=== PATIENT | female | born 1960 | race Caucasian/White ===

== ENCOUNTER 2016-08-09 21:35 | Inpatient (IN) | payer OTHER ==
[~2016-08-09] VITALS: Ht 177.8 cm; Wt 113.8 kg
[~2016-08-09 21:35] MED LIST: Z.0.NO CURRENT MEDS
[2016-08-09 21:42] VITALS: BP 129/65; PULSE 85; RESP 20; TEMP 97.6; O2SAT 96
[2016-08-09] MEDS ORDERED: TETANUS/DIPHTHERIA TOXOID ADULT 0.5 ML VIAL IM ONE (22:30)
[2016-08-09] MEDS ORDERED: SODIUM CHLORIDE 0.9% FLUSH 5 ML FLUSH IVF PRN (22:30)
[2016-08-09] MEDS ORDERED: ceFAZolin 2 GM PREMIX 50 ML IV ONE (22:30)
[2016-08-09] MEDS ORDERED: MORPHINE SULFATE 8 MG/ML INJ IV PUSH ONE (22:30)
--- NOTE | 2016-08-09 22:36 | PD ---
HPI Chief Complaint: Wrist pain, finger pain. Time Seen by Provider: 22:14 Travel History International Travel<30 days: No Contact w/Intl Traveler<30days: No Traveled to known affect area: No History of Present Illness HPI Patient's 56-year-old female who was walking down the stairs to go 10 to her cats when she tripped and fell landing on outstretched hands. Patient is complaining of left finger pain as well as right wrist pain. Patient states that she went to the [facility] the wait was too long and so she went to [facility] the wait was too long and she went to an urgent care facility and she was referred back to the emergency department. She said the injury happened approximately 2 hours prior to her arrival in the emergency department. Patient denies any injury to her head neck back chest abdomen or pelvis. Denies loss of consciousness and describes a purely mechanical fall. PFSH Past Surgical History Hysterectomy: Yes Social History Alcohol Use: No Tobacco Use: Yes Allergies-Medications (Allergen,Severity, Reaction): Coded Allergies: No Known Allergies (Verified , 08/10/16) Reported Meds & Prescriptions Reported Meds & Active Scripts Active Review of Systems Except as stated in HPI: all other systems reviewed are Neg Physical Exam Narrative GENERAL: Well-developed well-nourished appears in quite significant pain. SKIN: Warm and dry. HEAD: Atraumatic. Normocephalic. EYES: Pupils equal and round. No scleral icterus. No injection or drainage. ENT: No nasal bleeding or discharge. Mucous membranes pink and moist. NECK: Trachea midline. No JVD. CARDIOVASCULAR: Regular rate and rhythm. No murmur appreciated. RESPIRATORY: No accessory muscle use. Clear to auscultation. Breath sounds equal bilaterally. GASTROINTESTINAL: Abdomen soft, non-tender, nondistended. Hepatic and splenic margins not palpable. MUSCULOSKELETAL: There is an obvious deformity of the right wrist with volar displacement of distal components compared to proximal components. Patient's pulse motor and sensory are intact distally. She also has an overlying laceration primarily on the ulnar aspect of her volar surface. There is some tendon exposed. The right elbow is within normal limits right shoulder within normal limits. The left index and long fingers have swelling and bruising. There is also a very small laceration in the webspace between the thumb and index finger on the left side. The wrist elbow and shoulder on this extremity are normal. CTL and S spine showed no step-off and no tenderness. Head is atraumatic. No visible signs of trauma to her chest abdomen or pelvis. Lower extremities are atraumatic. NEUROLOGICAL: Awake and alert. No obvious cranial nerve deficits. Motor grossly within normal limits. Normal speech. PSYCHIATRIC: Appropriate mood and affect; insight and judgment normal. Data Data Last Documented VS Vital Signs Date Time Temp Pulse Resp B/P Pulse Ox O2 Delivery O2 Flow Rate FiO2 08/10/16 01:33 83 20 118/60 95 Room Air 08/10/16 01:33 5.00 08/09/16 21:42 97.6 Orders Wrist, Complete (Lat1umk) (08/09/16 ) Hand, Complete ([id number]) (08/09/16 22:21) Basic Metabolic Panel (Bmp) (08/09/16 22:29) Complete Blood Count With Diff (08/09/16 22:29) Iv Access Insert/Monitor (08/09/16 22:29) Ecg Monitoring (08/09/16 22:29) Oximetry (08/09/16 22:29) Sodium Chloride 0.9% Flush (Ns Flush) (08/09/16 22:30) Tetanus/Diphtheria Tox Adult (Tetanus/Di (08/09/16 22:30) Cefazolin 2 Gm Premix (Ancef 2 Gm Premix (08/09/16 22:30) Morphine Inj (Morphine Inj) (08/09/16 22:30) Propofol 200 Mg/20 Ml Inj (Diprivan 200 (08/10/16 00:15) Lidocaine 1% Inj (50 Ml) (Xylocaine 1% I (08/10/16 01:00) Wrist, Limited (Ap&Lat) (08/10/16 ) Hand, Limited (2vws) (08/10/16 ) Admit Order (Ed Use Only) (08/10/16 ) Chest, Single Ap (08/10/16 ) Electrocardiogram (08/10/16 ) Consult Orthopedic (08/10/16 ) Labs Laboratory Tests Test 08/09/16 23:25 White Blood Count 13.9 TH/MM3 Red Blood Count 4.50 MIL/MM3 Hemoglobin 14.0 GM/DL Hematocrit 40.1 % Mean Corpuscular Volume 89.2 FL Mean Corpuscular Hemoglobin 31.1 PG Mean Corpuscular Hemoglobin 34.9 % Concent Red Cell Distribution Width 13.4 % Platelet Count 330 TH/MM3 Mean Platelet Volume 8.3 FL Neutrophils (%) (Auto) 84.8 % Lymphocytes (%) (Auto) 10.1 % Monocytes (%) (Auto) 3.9 % Eosinophils (%) (Auto) 0.8 % Basophils (%) (Auto) 0.4 % Neutrophils # (Auto) 11.8 TH/MM3 Lymphocytes # (Auto) 1.4 TH/MM3 Monocytes # (Auto) 0.5 TH/MM3 Eosinophils # (Auto) 0.1 TH/MM3 Basophils # (Auto) 0.1 TH/MM3 CBC Comment DIFF FINAL Differential Comment Sodium Level 138 MEQ/L Potassium Level 3.5 MEQ/L Chloride Level 101 MEQ/L Carbon Dioxide Level 27.0 MEQ/L Anion Gap 10 MEQ/L Blood Urea Nitrogen 9 MG/DL Creatinine 0.67 MG/DL Estimat Glomerular Filtration 92 ML/MIN Rate Random Glucose 104 MG/DL Calcium Level 8.6 MG/DL MDM Medical Decision Making Medical Screen Exam Complete: Yes Emergency Medical Condition: Yes Differential Diagnosis Open fracture of the right distal radius, finger dislocation, finger fracture, tendon involvement unlikely, vascular involvement unlikely. Narrative Course Patient is a 56-year-old female presents today with fracture of her right distal radius. Thomas be open as there is a laceration of the flexor surface of the radius. She has been ordered pain medicine as well as Ancef. At 2236 a screening medical exam was performed and she will be bed as soon as a bed becomes available. Last 24 hours Impressions Hand X-Ray 08/09/16 2221 Signed Impressions: Service Date/Time: Tuesday, August 09, 2016 22:11 - CONCLUSION: 1. Dislocation at the proximal interphalangeal joint of the second and third fingers. Caleb Hernandez MD Wrist X-Ray 08/09/16 0000 Signed Impressions: Service Date/Time: Tuesday, August 09, 2016 22:06 - CONCLUSION: 1. Posteriorly displaced distal radius fracture with slight comminution. Caleb Hernandez MD Patient was sedated by Dr. Garcia for reduction of her right wrist after discussing with Dr. Mckinley who is on-call for orthopedics. Patient will be placed on the OR schedule for tomorrow morning. Request transfer up to the main hospital for surgery. Patient is being in Ancef as well as tetanus shot in the emergency department. Post reduction films of fingers showed adequate reduction without fracture. Post reduction of wrist shows minimally improved angulation. Discussed with Dr. Siddiqi for admission. Procedures Procedure Narrative Finger reduction: During induction of procedural sedation but Dr. Garcia, patients left index and long fingers were anesthetized with digital blocks with 1% lidocation prior to reduction and with gentle traction and countertraction were reduced easily. Motor and cap refill intact after reduction. Patient after sedation was complaining of finger numbness. WIll continue to monitor but this is from ring block currently. Wrist reduction: Under procedural sedation patient has quite a lax fracture site which slipped in and out of alignment multiple times during sedation. Hematoma block was performed with 1% lidocaine prior to reduction. She was splinted with sugar tong splint. Pulses motor and sensory were intact after splinting. She suffered no untoward events complication of either splinting reduction or sedation. Feeling much better. Diagnosis Primary Impression: Open fracture of distal end of radius Qualified Code: S52.531B - Type I or II open Colles' fracture of right radius , initial encounter Additional Impression: Finger dislocation Qualified Code: S63.259A - Finger dislocation, initial encounter Admitting Information Admitting Physician Requests: Admit Condition: Stable Romulo Quiroga MD Aug 09, 2016 22:36
--- NOTE | 2016-08-09 22:43 | RADHPO ---
EXAM DATE/TIME: 08/09/2016 22:06 [facility] COMPARISON: No previous studies available for comparison. INDICATIONS : Right wrist pain after fall. MEDICAL HISTORY : None. SURGICAL HISTORY : None. ENCOUNTER: Initial ACUITY: 1 day PAIN SCORE: 10/10 LOCATION: Right upper extremity FINDINGS: Three view examination of the right wrist demonstrates fracture distal radius with posterior displace ment. No dislocation. Ulna appears intact. CONCLUSION: 1. Posteriorly displaced distal radius fracture with slight comminution. Caleb Hernandez MD on August 09, 2016 at 22:40 Board Certified Radiologist. This report was verified electronically.
--- NOTE | 2016-08-09 22:44 | RADHPO ---
EXAM DATE/TIME: 08/09/2016 22:11 [facility] COMPARISON: No previous studies available for comparison. INDICATIONS : Multiple left hand lacerations and pain from cat scratch. MEDICAL HISTORY : None. SURGICAL HISTORY : None. ENCOUNTER: Initial ACUITY: 1 day PAIN SCORE: 5/10 LOCATION: Left upper extremity FINDINGS: There is posterior dislocation at the second and third proximal interphalangeal joints. No fracture o r radiopaque foreign body. CONCLUSION: 1. Dislocation at the proximal interphalangeal joint of the second and third fingers. Caleb Hernandez MD on August 09, 2016 at 22:41 Board Certified Radiologist. This report was verified electronically.
[2016-08-09 23:28] VITALS: RESP 18; O2SAT 97
[2016-08-09 23:35] VITALS: BP 130/68; PULSE 85; RESP 18; O2SAT 97
[2016-08-09 23:44] LABS: AUTOMATED NEUTROPHIL # 11.8 TH/MM3 (1.8-7.7); BASOPHIL # 0.1 TH/MM3 (0-0.2); BASOPHIL % 0.4 % (0.0-2.0); EOSINOPHIL # 0.1 TH/MM3 (0-0.4); EOSINOPHIL % 0.8 % (0.0-4.0); HEMATOCRIT 40.1 % (35.0-46.0); HEMO FLAGS DIFF FINAL; LYMPH % 10.1 % (9.0-44.0); LYMPHOCYTE # 1.4 TH/MM3 (1.0-4.8); MEAN CELL VOLUME 89.2 FL (80.0-100.0); MEAN CORPUSCULAR HEMOGLOBIN 31.1 PG (27.0-34.0); MEAN CORPUSCULAR HGB CONC 34.9 % (32.0-36.0); MONO % 3.9 % (0.0-8.0); NEUT % 84.8 % (16.0-70.0); PLATELET COUNT 330 TH/MM3 (150-450); RED CELL DISTRIBUTION WIDTH 13.4 % (11.6-17.2); WHITE BLOOD COUNT 13.9 TH/MM3 (4.0-11.0)
[2016-08-09 23:51] LABS: POTASSIUM 3.5 MEQ/L (3.5-5.1)
[2016-08-10] VITALS (14 sets, daily range): BP systolic 108–159; BP diastolic 58–77; PULSE 74–88; RESP 16–20; TEMP 96.7–98.5; O2SAT 93–97
[2016-08-10] MEDS ORDERED: PROPOFOL 200 MG/20 ML AMP IV ONE ×2 (00:15→11:06)
[2016-08-10] MEDS ORDERED: LIDOCAINE HCL 1% 50 ML VIAL INFIL ONE (01:00)
--- NOTE | 2016-08-10 02:05 | RADHPO ---
EXAM DATE/TIME: 08/10/2016 01:50 [facility] COMPARISON: WRIST RIGHT COMPLETE ([id number]), August 09, 2016, 22:06. INDICATIONS : Post reduction right wrist. MEDICAL HISTORY : None. SURGICAL HISTORY : None. ENCOUNTER: Subsequent ACUITY: 1 day PAIN SCORE: 8/10 LOCATION: Right upper extremity FINDINGS: 2 view examination performed in fiberglass splint status post reduction of distal radial fracture. A lateral projection, there is partial reduction with only mild posterior angulation of the comminuted distal radial fracture. The carpus is in normal alignment. The distal ulna is intact. Degenerativ e changes in the 1st MCP articulation. CONCLUSION: Partial reduction of the angulated comminuted distal radial fracture in splint. Leighton Carlton MD on August 10, 2016 at 2:01 Board Certified Radiologist. This report was verified electronically.
--- NOTE | 2016-08-10 02:07 | RADHPO ---
EXAM DATE/TIME: 08/10/2016 01:49 [facility] COMPARISON: HAND LEFT COMPLETE ([id number]), August 09, 2016, 22:11. INDICATIONS : Post reduction left hand. MEDICAL HISTORY : None. SURGICAL HISTORY : None. ENCOUNTER: Subsequent ACUITY: 1 day PAIN SCORE: 4/10 LOCATION: Left upper extremity FINDINGS: Two-view examination status post reduction of PIP joint dislocations of the 2nd and 3rd digits. Alig nment is now anatomic. Aluminum splint is present on the palmar 3rd digit. Osseous structures are i n anatomic alignment. No fracture seen. CONCLUSION: Interval reduction of 2nd and 3rd digit PIP dislocations. Leighton Carlton MD on August 10, 2016 at 2:03 Board Certified Radiologist. This report was verified electronically.
[2016-08-10] MEDS ORDERED: SODIUM CHLOR 0.9% 1000 ML INJ 1,000 ML IV SCH (02:23)
--- NOTE | 2016-08-10 02:27 | PD ---
Physical Exam Date Seen by Provider: Aug 10, 2016 Time Seen by Provider: 01:30 Narrative GENERAL: Well-developed well-nourished female in no acute distress no respiratory distress SKIN: Warm and dry. HEAD: Normocephalic. EYES: No scleral icterus. Pupils equal round reactive to light. No injection or drainage. ENT airway is patent mucous membranes moist. NECK: Supple, trachea midline. No JVD or lymphadenopathy. Normal flexion extension without limitation. CARDIOVASCULAR: Regular rate and rhythm without murmurs, gallops, or rubs. RESPIRATORY: Breath sounds equal bilaterally. No accessory muscle use. GASTROINTESTINAL: Abdomen soft, non-tender, nondistended. MUSCULOSKELETAL: No cyanosis, or edema. Patient with obvious deformity of the right wrist and left index and middle fingers please refer to Dr. Quiroga's dictation Data Data Last Documented VS Vital Signs Date Time Temp Pulse Resp B/P Pulse Ox O2 Delivery O2 Flow Rate FiO2 08/10/16 01:33 83 20 118/60 95 Room Air 08/10/16 01:33 5.00 08/09/16 21:42 97.6 Orders Wrist, Complete ([id number]) (08/09/16 ) Hand, Complete ([id number]) (08/09/16 22:21) Basic Metabolic Panel (Bmp) (08/09/16 22:29) Complete Blood Count With Diff (08/09/16 22:29) Iv Access Insert/Monitor (08/09/16 22:29) Ecg Monitoring (08/09/16 22:29) Oximetry (08/09/16 22:29) Sodium Chloride 0.9% Flush (Ns Flush) (08/09/16 22:30) Tetanus/Diphtheria Tox Adult (Tetanus/Di (08/09/16 22:30) Cefazolin 2 Gm Premix (Ancef 2 Gm Premix (08/09/16 22:30) Morphine Inj (Morphine Inj) (08/09/16 22:30) Propofol 200 Mg/20 Ml Inj (Diprivan 200 (08/10/16 00:15) Lidocaine 1% Inj (50 Ml) (Xylocaine 1% I (08/10/16 01:00) Wrist, Limited (Ap&Lat) (08/10/16 ) Hand, Limited (2vws) (08/10/16 ) Admit Order (Ed Use Only) (08/10/16 ) Chest, Single Ap (08/10/16 ) Electrocardiogram (08/10/16 ) Consult Orthopedic (08/10/16 ) Labs Laboratory Tests Test 08/09/16 23:25 White Blood Count 13.9 TH/MM3 Red Blood Count 4.50 MIL/MM3 Hemoglobin 14.0 GM/DL Hematocrit 40.1 % Mean Corpuscular Volume 89.2 FL Mean Corpuscular Hemoglobin 31.1 PG Mean Corpuscular Hemoglobin 34.9 % Concent Red Cell Distribution Width 13.4 % Platelet Count 330 TH/MM3 Mean Platelet Volume 8.3 FL Neutrophils (%) (Auto) 84.8 % Lymphocytes (%) (Auto) 10.1 % Monocytes (%) (Auto) 3.9 % Eosinophils (%) (Auto) 0.8 % Basophils (%) (Auto) 0.4 % Neutrophils # (Auto) 11.8 TH/MM3 Lymphocytes # (Auto) 1.4 TH/MM3 Monocytes # (Auto) 0.5 TH/MM3 Eosinophils # (Auto) 0.1 TH/MM3 Basophils # (Auto) 0.1 TH/MM3 CBC Comment DIFF FINAL Differential Comment Sodium Level 138 MEQ/L Potassium Level 3.5 MEQ/L Chloride Level 101 MEQ/L Carbon Dioxide Level 27.0 MEQ/L Anion Gap 10 MEQ/L Blood Urea Nitrogen 9 MG/DL Creatinine 0.67 MG/DL Estimat Glomerular Filtration 92 ML/MIN Rate Random Glucose 104 MG/DL Calcium Level 8.6 MG/DL [facility] Medical Record Reviewed: Yes Supervised Visit with JM: No Differential Diagnosis please refer to Dr Quiroga's dictation Narrative Course Patient identified to have dislocation of left index and middle fingers as well as fracture dislocation of the right wrist; asked to participate in procedural sedation for Dr. Quiroga's planned reduction of the right wrist and left digits. Procedures Procedure Narrative After the risks and benefits were discussed the following procedure was performed: MODERATE SEDATION: The patient was placed on a youth nutritional monitor and pulse oximetry. An ambu bag and suction was immediately available at bedside. The patient was monitored by the nurse. Oxygen saturation, heart rate and blood pressure were monitored. Procedural sedation was achieved using propofol 200 mg. The patient was observed until awake and alert. Procedural Sedation time in attendance was 25 minutes. Diagnosis Primary Impression: Open fracture of distal end of radius Qualified Code: S52.531B - Type I or II open Colles' fracture of right radius , initial encounter Condition: Stable Isabel Garcia MD Aug 10, 2016 02:27
[2016-08-10] MEDS ORDERED: NALOXONE HCL 0.4 MG/ML AMP IV PRN ×2 (02:30→12:45)
[2016-08-10] MEDS ORDERED: ONDANSETRON HCL 4 MG/2 ML VIAL IVP PRN ×2 (02:30→12:45)
[2016-08-10] MEDS ORDERED: ACETAMINOPHEN 325 MG TAB PO PRN (02:30)
[2016-08-10] MEDS ORDERED: SODIUM CHLORIDE 0.9% FLUSH 5 ML FLUSH FLUSH PRN (02:30)
--- NOTE | 2016-08-10 03:25 | RADHPO ---
EXAM DATE/TIME: 08/10/2016 02:40 [facility] COMPARISON: No previous studies available for comparison. INDICATIONS : Evaluate for pneumonia, pneumothorax, or communicable disease. Pre op right wrist. MEDICAL HISTORY : None. SURGICAL HISTORY : None. ENCOUNTER: Initial ACUITY: 1 day PAIN SCORE: 0/10 LOCATION: Bilateral chest FINDINGS: A single view of the chest demonstrates the lungs to be symmetrically aerated without evidence of mas s, infiltrate or effusion. The cardiomediastinal contours are unremarkable. Osseous structures are intact. CONCLUSION: The lungs are clear. Leighton Carlton MD on August 10, 2016 at 3:23 Board Certified Radiologist. This report was verified electronically.
[2016-08-10] MEDS: MORPHINE SULFATE 4 MG/ML INJ IV PUSH PRN ×2 (03:58→09:50)
[2016-08-10] MEDS ORDERED: SODIUM CHLORID 0.9% 500 ML IV SCH (04:45)
[2016-08-10] MEDS ORDERED: LACTATED RINGER'S 1000 ML IV SCH (04:45)
[2016-08-10] MEDS ORDERED: INSULIN HUMAN REGULAR 1,000 UNITS/10 ML VIAL SQ PRN (04:45)
[2016-08-10] MEDS ORDERED: METOPROLOL TARTRATE 25 MG TAB PO PRN (04:45)
[2016-08-10] MEDS ORDERED: SODIUM CHLORIDE 0.9% FLUSH 5 ML FLUSH FLUSH SCH (09:00)
[2016-08-10] MEDS ORDERED: ACETAMINOPHEN 1000 MG/100 ML VIAL IV ONE (11:00)
[2016-08-10] MEDS ORDERED: BUPIVACAINE HCL PF 0.25% 30 ML VIAL ONE (11:04)
[2016-08-10] MEDS ORDERED: GENTAMICIN SULFATE 80 MG/2 ML VIAL ONE (11:04)
[2016-08-10] MEDS ORDERED: LIDOCAINE HCL 1% 50 ML VIAL ONE (11:04)
[2016-08-10] MEDS ORDERED: ONDANSETRON HCL 4 MG/2 ML VIAL IV PUSH ONE (11:06)
[2016-08-10] MEDS ORDERED: VANCOMYCIN HCL 1000 MG VIAL ONE (11:31)
[2016-08-10] MEDS: DEXT 5%-NACL 0.45% 1000 ML INJ 1,000 ML IV SCH ×2 (12:42→20:51)
[2016-08-10] MEDS ORDERED: HYDR-3288 PO (12:44)
[2016-08-10] MEDS ORDERED: CEPH-460 PO (12:44)
[2016-08-10] MEDS ORDERED: MORPHINE SULFATE 4 MG/ML INJ IV PUSH PRN (12:45)
[2016-08-10] MEDS ORDERED: MAGNESIUM HYDROXIDE SUSP 30 ML CUP PO PRN (12:45)
[2016-08-10] MEDS ORDERED: diphenhydrAMINE HCL 25 MG CAP PO PRN (12:45)
[2016-08-10] MEDS ORDERED: ACETAMINOPHEN/HYDROcodone 325 MG/7.5 MG TAB PO PRN (12:45)
[2016-08-10] MEDS ORDERED: Post-op Orders (for Pharmacy) MISC XX ONE (12:45)
[2016-08-10] MEDS ORDERED: MISCELLANEOUS PHARMACY INFORMATION XX ONE (12:45)
[2016-08-10] MEDS ORDERED: MISCELLANEOUS NURSING INFORMATION XX PRN (12:45)
[2016-08-10] MEDS ORDERED: SODIUM CHLORIDE 0.9% FLUSH 5 ML FLUSH IVF PRN (12:45)
[2016-08-10] MEDS ORDERED: MIDAZOLAM HCL 2 MG/2 ML VIAL ONE (12:54)
[2016-08-10] MEDS ORDERED: KETAMINE HCL 500 MG/5 ML VIAL ONE (12:54)
[2016-08-10] MEDS ORDERED: fentaNYL CITRATE 250 MCG/5 ML AMP ONE (12:55)
[2016-08-10] MEDS ORDERED: *RESP: ALBUTEROL 2.5 MG/3 ML NEB (PRN) PERIprocedural Use ONLY NEB ONE (12:56)
[2016-08-10] MEDS ORDERED: DO NOT ADM ANY ANTICOAGULANT DRUGS XX PRN (13:15)
[2016-08-10] MEDS: MORPHINE SULFATE 30 MG/30 ML PCA IV SCH (13:21)
[2016-08-10] MEDS: PCA - TOTAL MG MORPHINE DELIVERED PER SHIFT SCH ×2 (14:00→20:50)
--- NOTE | 2016-08-10 14:32 | EKG ---
Date Performed: 08/10/2016 Time Performed: 02:13:14 PTAGE: 56 years EKG: Sinus rhythm . Nonspecific ST and T wave abnormalities Borderline ECG NO PREVIOUS TRACING DOCTOR: Serafin Bojorquez Interpretating Date/Time 08/10/2016 14:31:50
--- NOTE | 2016-08-10 15:43 | MH ---
cc: EVA SIDDIQI DATE OF ADMISSION: 08/10/2016 ADMITTING DOCTOR: Dr. Eva Siddiqi. PRIMARY CARE DOCTOR: Dr. Smith. REASON FOR ADMISSION: Pain in the finger left hand and wrist and arm right hand after a fall. HISTORY OF PRESENT ILLNESS: The patient is a very pleasant 66-year-old female without any significant past medical history who is taking no medications at home. As per the patient, she was trying to feed her cats and while she was trying to go downstairs, she tripped and she fell on the stairs. She fell with outstretched arms. After that, she had pain and she was brought to the emergency room. In the emergency room, she was evaluated by the emergency room physician and it was found the patient has a radius fracture and dislocation of the fingers for which the patient was admitted. At present, the patient is seen after surgery in her room. This morning she was not in her room and she went to the operating room. At present, the patient has some ache in her surgical area. There are no other associated symptoms. PAST MEDICAL HISTORY: Hysterectomy. MEDICATIONS: None. ALLERGIES: NO KNOWN DRUG ALLERGIES. REVIEW OF SYSTEMS: The review of systems is as described above in the history of present illness and is negative for ten systems. SOCIAL HISTORY: The patient does not smoke. She drinks a total of five wine glasses or beer per week. She does not do any drugs. She has lived with her significant other for 22 years. FAMILY HISTORY: Noncontributory. PHYSICAL EXAMINATION: GENERAL: The patient is alert and oriented, obese, lying on the bed without any apparent distress. VITAL SIGNS: The vitals show the patient is afebrile, pulse is 81, respiratory rate is 12, blood pressure 152/83, pulse oximetry 95% on four liters. HEAD, EYES, EARS, NOSE, THROAT: Head is normocephalic and atraumatic. Eyes - negative conjunctival icterus. Mouth unremarkable. NECK: The neck is supple. No increased jugular venous distention. Negative thyromegaly. Central trachea. RESPIRATORY SYSTEM: Chest clear to auscultation. CARDIOVASCULAR: S1 and S2 audible. I do not hear any S3 gallop. GASTROINTESTINAL: Abdomen soft. No organomegaly. Positive bowel sounds. MUSCULOSKELETAL: Positive for sling on the right upper extremity with dressing on part of the hand as well as arm and elbow area. Left hand with two fingers in splint. The patient has good sensation in both hands. She can move her fingers. CENTRAL NERVOUS SYSTEM: Alert, oriented, normal facial features moving extremities. PSYCHIATRIC: Appropriate mood, affect. SKIN: Warm and dry. INVESTIGATIONS: Basic metabolic profile within normal limits. CBC shows WBC count 13; otherwise, within normal limits. IMAGING STUDIES: Chest x-ray was done which shows lungs are clear. Wrist x-rays were done yesterday showing a posterior displaced distal radius fracture with slight comminution. Hand x-rays show dislocation at the proximal interphalangeal joint of the second and third fingers. Wrist x-rays show partial reduction of the angulated comminuted distal radius fracture in a splint. Hand x-rays were done which show interval reduction of the second and third digits, proximal interphalangea dislocations. ASSESSMENT: 1. Open fracture of the distal end of the radius. 2. Finger dislocation. 3. Obesity. PLAN: 1. The patient has been admitted to the floor. 2. Appreciate orthopedic help status post surgery. 3. IV hydration. 4. IV analgesics on a PRN basis. 5. Antiemetics on a PRN basis. 6. Labs in the morning. Discussed with the patient and her at bedside. See orders. Further recommendations will follow as the patient progresses. Eva Siddiqi MD JP/JONO /2:27 PM /3:25 PM
--- NOTE | 2016-08-10 15:52 | RADRPT ---
EXAM DATE/TIME: 08/10/2016 12:19 [facility] COMPARISON: WRIST RIGHT LIMITED(AP & LAT), August 10, 2016, 1:50. INDICATIONS : Open reduction internal fixation of right radius fracture MEDICAL HISTORY : None. SURGICAL HISTORY : None. ENCOUNTER: Initial ACUITY: 1 day PAIN SCORE: Non-responsive. LOCATION: Right wrist FINDINGS: Matrix views in the OR reveal placement of a ventral plate across the distal radius with multiple scr ews transfixing the distal radial fracture fragments at the X. alignment and approximation of fragmen ts. CONCLUSION: Postsurgical plating distal radial fracture Freddie John MD on August 10, 2016 at 15:50 Board Certified Radiologist. This report was verified electronically.
--- NOTE | 2016-08-10 16:42 | MB ---
cc: TASHIA STEINER M.D. DATE OF CONSULTATION: 08/10/2016. REASON FOR CONSULTATION: Left open distal radius fracture. HISTORY OF PRESENT ILLNESS: This a 56-year-old female who was going down the stairs and tripped and fell landing on her outstretched hand. She developed the acute onset of a left distal radius fracture. This is an open fracture. She has significant pain, swelling and deformity of the wrist and also injured her fingers. She was initially evaluated by the emergency room physician at [facility] and she underwent irrigation in the emergency room and was given antibiotics and transferred to [facility]. She denies numbness or tingling. She denies loss of consciousness. She did not hit her head. The pain is constant and throbbing, slight relief with pain medication. PAST SURGICAL HISTORY: Hysterectomy. SOCIAL HISTORY: She denies alcohol, but she does smoke approximately one pack a day. ALLERGIES: SHE DENIES ANY DRUG ALLERGIES. MEDICATIONS: She does not take any medications. REVIEW OF SYSTEMS: Negative for ten systems other than the history of present illness. PHYSICAL EXAMINATION: VITAL SIGNS: Temperature 97.6, pulse is 83, respirations 20, blood pressure 118/60. GENERAL: The patient is overweight, awake, alert and lying in bed in no acute distress. HEAD, EYES, EARS, NOSE, THROAT: Normocephalic and atraumatic. Pupils round and reactive to light. Extraocular muscles intact. No scleral icterus. NECK: The neck is supple. LUNGS: Clear. HEART: Regular rate and rhythm. ABDOMEN: Abdomen soft and nontender. EXTREMITIES: The left upper extremity has swelling, ecchymosis and deformity of the left wrist. She has a traumatic laceration approximately 2 cm over the volar ulnar portion. No obvious bleeding. She can flex and extend her digits with limitation. Brisk capillary refill. Sensation is intact distally. 2+ radial pulse. PSYCHIATRIC: She has an appropriate mood and affect. LABORATORY DATA: White blood cell count is 13.9, hemoglobin 14, hematocrit is 40. Calcium is 8.6. IMAGING STUDIES: X-rays of the left wrist reveal a comminuted displaced interarticular distal radius fracture. IMPRESSION: A 56-year-old female who is status post fall with left comminuted displaced interarticular grade 2 open distal radius fracture. She also has injuries to her fingers including dislocations that apparently have been reduced by the emergency room physician. PLAN: I discussed the diagnosis with the patient. She had the treatment option of both operative versus nonoperative. The risks, benefits, and indications were discussed. She did wish to proceed with surgery. We will schedule her for irrigation and debridement and open reduction internal fixation of the fracture. The risks of surgery were discussed which include but are not limited to anesthesia, bleeding, infection, damage to nerve or blood vessels, pain, stiffness, failure of hardware, nonunion, blood clots. The patient understands. She does wish to proceed with surgery as outlined above. Written consent has been obtained. The surgical site has been marked. MD JENNIFER Pena/JONO /12:38 PM /4:31 PM
[2016-08-10] MEDS: SODIUM CHLORIDE 0.9% FLUSH 5 ML FLUSH IVF SCH (20:50)
[2016-08-10] MEDS: DOCUSATE SODIUM 50 MG/SENNA 8.6 MG TAB PO SCH (20:50)
--- NOTE | 2016-08-10 22:11 | MP ---
cc: TASHIA STEINER M.D. DATE OF SURGERY 08/10/16 PREOPERATIVE DIAGNOSIS Right grade 2 open distal radius fracture. POSTOPERATIVE DIAGNOSES Right grade 2 open distal radius fracture. PROCEDURE Open reduction, internal fixation right grade 2 open distal radius fracture greater than 3 intra-articular fragments, irrigation debridement of right grade 2 open distal radius fracture. SURGEON Dr. Tashai Steiner PHYSICAL SCIENCES PROFESSOR PEREZ Lynch ANESTHESIA General. ESTIMATED BLOOD LOSS Less than 50 cc. TOURNIQUET TIME Zero minutes. COMPLICATIONS None. IMPLANTS USED Synthes. JUSTIFICATION This patient is a 56-year-old female who fell down the stairs sustaining a right distal radius fracture with displacement. She also had a traumatic laceration of the ulnar volar aspect. She is admitted to the medical service, orthopedic surgery consulted. The patient was counseled as to the risks, benefits and alternatives to the above-named surgical procedure. She did wish to proceed with surgery. PROCEDURE IN DETAIL A written consent was obtained. The patient was identified by name, taken to OR, placed supine, ___, general anesthesia was administered as well as 2 grams of IV Ancef and 1 gram of IV vancomycin. The right upper extremity was then prepped and draped using as isopropyl alcohol, Hibiclens solution and Chloraprep solution. After appropriate time-out was performed a longitudinal incision was made over the volar aspect of the right wrist. The flexor carpi radialis tendon sheath was incised and the pronator musculature elevated off the radial aspect of the distal radius, multiple K-wires were used for preliminary fixation, reconstruction of the joint surface. Subsequently, Synthes volar ____ was applied to the volar aspect of the distal radius. A combination of both locking and nonlocking screws were used for fixation. Fluoroscopic imaging confirmed hardware placement and fracture reduction. The K-wires were removed. A debridement of the open traumatic wound was performed with a 15 blade scalpel to include skin and subcutaneous tissue with irrigation and debridement down to the level of the ulna. The subcutaneous incision along the radial aspect was closed with 3-0 Vicryl suture. Skin incisions were closed with 4-0 nylon. Sterile dressing applied. The patient placed in well-padded splint. She tolerated the procedure well with no intraoperative complications noted. Marco Payne, physician recreational assistant certified, was present during the entire procedure to include patient positioning, the procedure itself. The medical necessity of physician recreational assistant was indicated in this case due to the complexity of the procedure to assist with appropriate manipulation of the wrist. He also assisted with retraction of muscle, tendon, bone, neurovascular structures. He assisted with both maintaining and achieving fracture reduction as well as implantation of the internal fixation device. MD JENNIFER Pena/GAURI /12:41 PM /9:41 PM
[2016-08-11] VITALS (8 sets, daily range): BP systolic 95–117; BP diastolic 50–73; PULSE 71–80; RESP 16–17; TEMP 96–97.9; O2SAT 94–97
[2016-08-11] MEDS: MORPHINE SULFATE 30 MG/30 ML PCA IV SCH (03:35)
[2016-08-11] MEDS: PCA - TOTAL MG MORPHINE DELIVERED PER SHIFT SCH ×2 (05:29→13:02)
[2016-08-11 05:57] LABS: AUTOMATED NEUTROPHIL # 6.3 TH/MM3 (1.8-7.7); BASOPHIL % 0.5 % (0.0-2.0); EOSINOPHIL # 0.1 TH/MM3 (0-0.4); EOSINOPHIL % 0.9 % (0.0-4.0); HEMATOCRIT 33.4 % (35.0-46.0); HEMO FLAGS DIFF FINAL; LYMPH % 13.8 % (9.0-44.0); LYMPHOCYTE # 1.1 TH/MM3 (1.0-4.8); MEAN CELL VOLUME 90.4 FL (80.0-100.0); MEAN CORPUSCULAR HEMOGLOBIN 31.4 PG (27.0-34.0); MEAN CORPUSCULAR HGB CONC 34.7 % (32.0-36.0); MONO % 8.8 % (0.0-8.0); PLATELET COUNT 245 TH/MM3 (150-450); RED CELL DISTRIBUTION WIDTH 14.4 % (11.6-17.2); WHITE BLOOD COUNT 8.2 TH/MM3 (4.0-11.0)
[2016-08-11 06:09] LABS: BICARBONATE 28.7 MEQ/L (21.0-32.0); POTASSIUM 3.8 MEQ/L (3.5-5.1)
[2016-08-11] MEDS: DOCUSATE SODIUM 50 MG/SENNA 8.6 MG TAB PO SCH ×2 (08:37→20:42)
[2016-08-11] MEDS: SODIUM CHLORIDE 0.9% FLUSH 5 ML FLUSH IVF SCH ×2 (08:37→20:42)
[2016-08-11] MEDS: MULTIVITAMINS/MINERALS THERAPEUTIC TAB PO SCH (08:37)
[2016-08-11] MEDS: DEXT 5%-NACL 0.45% 1000 ML INJ 1,000 ML IV SCH ×3 (08:38→22:58)
--- NOTE | 2016-08-11 16:16 | PD.ORT.PN ---
Subjective Subjective Remarks still using plant manager. feels light-headed. Objective Vitals Vital Signs Date Time Temp Pulse Resp B/P Pulse Ox O2 Delivery O2 Flow Rate FiO2 08/11/16 15:54 Room Air 08/11/16 13:02 16 08/11/16 12:00 96.2 73 16 106/68 97 08/11/16 10:36 96 Nasal Cannula 2.00 08/11/16 08:40 Nasal Cannula 2.00 08/11/16 08:00 97.9 76 16 100/66 96 08/11/16 07:36 Nasal Cannula 2.00 08/11/16 05:29 16 08/11/16 04:22 96.0 80 17 117/73 97 08/11/16 03:35 18 08/11/16 00:20 97.5 80 17 104/56 97 08/10/16 20:50 16 08/10/16 20:23 97.4 82 16 114/66 97 I/O 08/10/16 08/10/16 08/10/16 08/11/16 08/11/16 08/11/16 07:00 15:00 23:00 07:00 15:00 23:00 Intake Total 800 ml 1150 ml 564 ml 300 ml Output Total 100 ml Balance 700 ml 1150 ml 564 ml 300 ml Intake Oral 720 ml 240 ml IV Total 430 ml 324 ml 300 ml Other 800 ml Output Estimated Blood Loss 100 ml # Voids 2 2 1 # Bowel Movements 0 0 0 Result Diagram: 08/11/1652008/11/16 0521 Objective Remarks in bed, nad splint c/d/i nvi cap refill present Assessment & Plan Ortho Post Op Day #: 1 Problem List: Assessment and Plan s/p ORIF R distal radius fx maintain splint d/c plant manager and transition to po pain meds ok to d/c home tomorrow from ortho f/up dr. grimes 2 weeks Walker Payne Aug 11, 2016 16:16
--- NOTE | 2016-08-11 17:22 | HHI.PR ---
Subjective Remarks pain at sx site better with iv pain meds no other complaint Objective Objective Results - Vital Signs Date Time Temp Pulse Resp B/P Pulse Ox O2 Delivery O2 Flow Rate FiO2 08/11/16 15:54 Room Air 08/11/16 13:02 16 08/11/16 12:00 96.2 73 16 106/68 97 08/11/16 10:36 96 Nasal Cannula 2.00 08/11/16 08:40 Nasal Cannula 2.00 08/11/16 08:00 97.9 76 16 100/66 96 08/11/16 07:36 Nasal Cannula 2.00 08/11/16 05:29 16 08/11/16 04:22 96.0 80 17 117/73 97 08/11/16 03:35 18 08/11/16 00:20 97.5 80 17 104/56 97 08/10/16 20:50 16 08/10/16 20:23 97.4 82 16 114/66 97 I/O 08/10/16 08/10/16 08/10/16 08/11/16 08/11/16 08/11/16 07:00 15:00 23:00 07:00 15:00 23:00 Intake Total 800 ml 1150 ml 564 ml 300 ml 118 ml Output Total 100 ml Balance 700 ml 1150 ml 564 ml 300 ml 118 ml Intake Oral 720 ml 240 ml IV Total 430 ml 324 ml 300 ml 118 ml Other 800 ml Output Estimated Blood Loss 100 ml # Voids 2 2 1 # Bowel Movements 0 0 0 Result Diagram: 08/11/1621 08/11/1621 Other Results Laboratory Tests Test 08/11/16 05:21 White Blood Count 8.2 Red Blood Count 3.70 Hemoglobin 11.6 Hematocrit 33.4 Mean Corpuscular Volume 90.4 Mean Corpuscular Hemoglobin 31.4 Mean Corpuscular Hemoglobin 34.7 Concent Red Cell Distribution Width 14.4 Platelet Count 245 Mean Platelet Volume 8.7 Neutrophils (%) (Auto) 76.0 Lymphocytes (%) (Auto) 13.8 Monocytes (%) (Auto) 8.8 Eosinophils (%) (Auto) 0.9 Basophils (%) (Auto) 0.5 Neutrophils # (Auto) 6.3 Lymphocytes # (Auto) 1.1 Monocytes # (Auto) 0.7 Eosinophils # (Auto) 0.1 Basophils # (Auto) 0.0 CBC Comment DIFF FINAL Differential Comment Sodium Level 140 Potassium Level 3.8 Chloride Level 104 Carbon Dioxide Level 28.7 Anion Gap 7 Blood Urea Nitrogen 7 Creatinine 0.60 Estimat Glomerular Filtration 104 Rate Random Glucose 116 Calcium Level 8.0 Physical Exam Physical Exam GENERAL: The patient is alert and oriented, obese, lying on the bed without any apparent distress. VITAL SIGNS: reviewed HEAD, EYES, EARS, NOSE, THROAT: Head is normocephalic and atraumatic. Eyes - negative conjunctival icterus. Mouth unremarkable. NECK: The neck is supple. No increased jugular venous distention. Negative thyromegaly. Central trachea. RESPIRATORY SYSTEM: Chest clear to auscultation. CARDIOVASCULAR: S1 and S2 audible. I do not hear any S3 gallop. GASTROINTESTINAL: Abdomen soft. No organomegaly. Positive bowel sounds. MUSCULOSKELETAL: Positive for sling on the right upper extremity with dressing on part of the hand as well as arm and elbow area. Left hand with two fingers in splint. The patient has good sensation in both hands. She can move her fingers. CENTRAL NERVOUS SYSTEM: Alert, oriented, normal facial features moving extremities. PSYCHIATRIC: Appropriate mood, affect. SKIN: Warm and dry. A/P Assessment and Plan 1. Open fracture of the distal end of the radius. 2. Finger dislocation. 3. Obesity. PLAN: Appreciate orthopedic help status post surgery. IV analgesics on a PRN basis. Antiemetics on a PRN basis. Labs reviewed dw pt will follow Discussed with the patient and her at bedside. See orders. Further recommendations will follow as the patient progresses. Courtney Siddiqi MD JP/JONO /2:27 PM /3:25 PM Courtney Siddiqi MD Aug 11, 2016 17:22
[2016-08-11] MEDS: ACETAMINOPHEN/HYDROcodone 325 MG/7.5 MG TAB PO PRN (22:42)
[2016-08-12 00:23] VITALS: BP 97/47; PULSE 80; RESP 16; TEMP 97.3; O2SAT 94
[2016-08-12] MEDS: ACETAMINOPHEN/HYDROcodone 325 MG/7.5 MG TAB PO PRN ×2 (03:28→08:33)
[2016-08-12 04:16] VITALS: BP 104/61; PULSE 81; RESP 16; TEMP 97.9; O2SAT 94
[2016-08-12 08:00] VITALS: BP 116/59; PULSE 85; RESP 18; TEMP 97.5; O2SAT 94
[2016-08-12] MEDS: MULTIVITAMINS/MINERALS THERAPEUTIC TAB PO SCH (08:31)
[2016-08-12] MEDS: DOCUSATE SODIUM 50 MG/SENNA 8.6 MG TAB PO SCH (08:31)
[2016-08-12] MEDS: SODIUM CHLORIDE 0.9% FLUSH 5 ML FLUSH IVF SCH (08:32)
[2016-08-12 09:33] VITALS: O2SAT 93
--- NOTE | 2016-08-12 10:19 | HHI.PR ---
Subjective Subjective Remarks pain well controlled no numbness, tingling to right had fingertips no n/v no fever feels better, anxious to go home at bsd Review of Systems Constitutional Constitutional Remarks 12 point ROS completed, negative except as noted above Vitals/Results Intake & Output 08/11/16 08/11/16 08/12/16 15:00 23:00 07:00 Intake Total 780 ml 933 ml 240 ml Balance 780 ml 933 ml 240 ml Intake Oral 480 ml 720 ml 240 ml IV Total 300 ml 213 ml # Voids 4 2 1 # Bowel Movements 0 0 0 Vital Signs Vital Signs Date Time Temp Pulse Resp B/P Pulse Ox O2 Delivery O2 Flow Rate FiO2 08/12/16 09:33 93 21 08/12/16 08:00 97.5 85 18 116/59 94 08/12/16 04:16 97.9 81 16 104/61 94 08/12/16 00:23 97.3 80 16 97/47 94 08/11/16 20:26 96.3 76 16 95/50 94 08/11/16 18:33 97 Nasal Cannula 2.00 08/11/16 16:00 96.1 71 16 106/59 95 08/11/16 15:54 Room Air 08/11/16 13:02 16 08/11/16 12:00 96.2 73 16 106/68 97 08/11/16 10:36 96 Nasal Cannula 2.00 CBC/BMP: 08/11/16 0521 08/11/16 0521 Physical Exam General General Appearance: Well Developed, Well Nourished, No Acute Distress, Comfortable Eyes Eye Exam: Pupils Equal, Pupils Reactive Ears & Nose Ears & Nose Exam: Nasal Mucosa Roots Throat Throat Exam: Oral Mucosa Roots & Moist Neck Neck Exam: Neck Supple, Trachea Midline Pulmonary Resp Exam: Clear Bilaterally, No Distress Cardiology CV Exam: Normal Sinus Rhythm, Good Perfusion Gastrointestinal/Abdomen GI Exam: Soft, Non-Tender, Bowel Sounds Present, Non-Distended Musculoskeletal MS Remarks Right hand/FA in splint, intact Integumentary Skin Exam: Warm, Dry Extremeties Extremities Exam: Pedal Pulses Palpable, Trace Edema Neurologic Neuro Exam: Alert, Awake, Oriented, Speech Clear, Moving All Extremities, No Focal Deficits Psychiatric Psych Exam: Appropriate Responses VTE Prophylaxis VTE Prophylaxis Device: SCDs Assessment/Plan Assessment/Plan 1. Open fracture of the distal end of the radius. 2. Finger dislocation. 3. Obesity. PLAN: Appreciate orthopedic input, ok for dc s/p ORIF R distal radius fx 08/10 post op ortho care on PO narcotics, doing well, pain well controlled Antiemetics on a PRN basis. SCD/TEDS DVT prophylaxis Discharge home today F/U Dr. Mckinley 2 weeks Diet-heart healthy Activity-as tolerated, may return to work in one week Leave dressing in place D/W RN D/W Dr. Siddiqi D/W pt. This patient was seen by myself and Dr. Siddiqi, this note is written on his behalf. Nancy Diaz Aug 12, 2016 10:19
--- NOTE | 2016-08-12 10:20 | HHI.DCPOC ---
Discharge Care Plan Diagnosis: (1) Finger dislocation (2) Open fracture of distal end of radius (3) Open Colles' fracture Your Health Problems Are: Inflammation Swelling Goals to Promote Your Health * To prevent worsening of your condition and complications * To maintain your health at the optimal level Directions to Meet Your Goals Take your medications as prescribed Follow your dietary instruction Follow activity as directed Keep your appointments as scheduled Take your immunizations and boosters as scheduled If your symptoms worsen call your PCP, if no PCP go to Urgent Care Center or Emergency Room Smoking is Dangerous to Your Health. Avoid second hand smoke Call the 24-hour hour crisis hotline for domestic abuse at Nancy Diaz Aug 12, 2016 10:20
--- NOTE | 2016-08-12 10:25 | HHI.DS ---
Discharge Summary Admission Date Aug 10, 2016 at 02:09 Discharge Date: Aug 12, 2016 Admitting Diagnosis Distal radius fracture, open. (1) Open fracture of distal end of radius (2) Open Colles' fracture (3) Finger dislocation CBC/BMP: 08/11/16 0521 08/11/16 0521 Significant Findings Laboratory Tests Test 08/09/16 08/11/16 23:25 05:21 White Blood Count 13.9 TH/MM3 (4.0-11.0) Neutrophils (%) (Auto) 84.8 % 76.0 % (16.0-70.0) (16.0-70.0) Neutrophils # (Auto) 11.8 TH/MM3 (1.8-7.7) Red Blood Count 3.70 MIL/MM3 (4.00-5.30) Hematocrit 33.4 % (35.0-46.0) Monocytes (%) (Auto) 8.8 % (0.0-8.0) Random Glucose 116 MG/DL (74-106) Calcium Level 8.0 MG/DL (8.5-10.1) Imaging Last Impressions Wrist X-Ray 08/10/16 0000 Signed Impressions: Service Date/Time: Wednesday, August 10, 2016 12:19 - CONCLUSION: Postsurgical plating distal radial fracture Freddie John MD Hand X-Ray 08/10/16 0000 Signed Impressions: Service Date/Time: Wednesday, August 10, 2016 01:49 - CONCLUSION: Interval reduction of 2nd and 3rd digit PIP dislocations. Leighton Carlton MD Chest X-Ray 08/10/16 0000 Signed Impressions: Service Date/Time: Wednesday, August 10, 2016 02:40 - CONCLUSION: The lungs are clear. Leighton Carlton MD Hospital Course The patient is a very pleasant 66-year-old female without any significant past medical history who is taking no medications at home. As per the patient, she was trying to feed her cats and while she was trying to go downstairs, she tripped and she fell on the stairs. She fell with outstretched arms. After that, she had pain and she was brought to the emergency room. In the emergency room, she was evaluated by the emergency room physician and it was found the patient has an open radius fracture and dislocation of the fingers for which the patient was admitted. Reduction was attempted in the ED, without success. Sugar splint was applied, she was given antibiotics and ortho was called. Pt. was admitted for: 1. Open fracture of the distal end of the radius. 2. Finger dislocation. 3. Obesity. During the course of the hospitalization, the following took place: Ortho consulted, put on IVF, kept NPO. IV analgesics ordered. Appreciate orthopedic input, surgery recommended. s/p ORIF R distal radius fx 08/10 post op ortho care Labs stable. was transitioned to PO, did well, pain well controlled Antiemetics on a PRN basis. SCD/TEDS DVT prophylaxis No complications during hospitalization cleared for dc by ortho Discharged home in stable condition and instructed to: F/U Dr. Mckinley 2 weeks Diet-heart healthy Activity-as tolerated, may return to work in one week Leave dressing in place Continue with PO antibiotics Pt Condition on Discharge: Stable Discharge Disposition: Discharge Home Discharge Instructions DIET: Follow Instructions for: Heart Healthy Diet Activities you can perform: Weight Bearing as Momo Follow up Referrals: Orthopedics - 2 Weeks with Walker Mckinley MD PCP Follow-up New Medications: Cephalexin (Keflex) 500 Mg Cap 500 MG PO Q6H Infection #28 Ref 0 CAP Hydrocodone-Acetaminophen ([place]) 7.5-325 mg Tab 1-2 TAB PO Q6H PRN PAIN #90 Ref 0 TAB Nancy Diaz Aug 12, 2016 10:25
== END 2016-08-12 12:09 | disposition home or self-care (01) | DRG 512 ==
LOC: PHED 21:35 → PHEDA 08-10 02:09 → N06B 08-10 04:31
PROVIDERS: ADMIT Specialist; ATTEND Specialist
PROC: 0RSXXZZ Reposition Left Finger Phalangeal Joint, External Approach (ICD-10-PCS; 2016-08-10)
PROC: 0RSXXZZ Reposition Left Finger Phalangeal Joint, External Approach (ICD-10-PCS; 2016-08-10)
PROC: 0PSJ04Z Reposition Left Radius with Internal Fixation Device, Open Approach (ICD-10-PCS; principal; 2016-08-10 11:18)
DX: S52.572B Other intraarticular fracture of lower end of left radius, initial encounter for open fracture type I or II (principal); E66.9 Obesity, unspecified; S63.273A Dislocation of unspecified interphalangeal joint of left middle finger, initial encounter; S63.271A Dislocation of unspecified interphalangeal joint of left index finger, initial encounter; F17.210 Nicotine dependence, cigarettes, uncomplicated; Z68.36 Body mass index [BMI] 36.0-36.9, adult; W10.8XXA Fall (on) (from) other stairs and steps, initial encounter; Y92.008 Other place in unspecified non-institutional (private) residence as the place of occurrence of the external cause; Y93.01 Activity, walking, marching and hiking
CPT/HCPCS: 25605; 26770; 71010; 73100; 73110; 73120; 73130; 76000; 80048; 85025; 90471; 90714; 93005; 94150; 94664; 96365; 96375; 99156; C1713; J0131; J0690; J1580; J2250; J2270; J2405; J3010; J3370; J7030; J7613